=== PATIENT | male | born 1950 | race Caucasian/White ===

== ENCOUNTER 2024-02-02 18:21 | Emergency (ER) | payer MEDICARE, OTHER, SELFPAY ==
[2024-02-02 18:21] VITALS: BMI 41.4
[2024-02-02 18:23] VITALS: BP 126/64
[2024-02-02 18:37] LABS: % Basophils 0.4 % (0-2); % Immature Granulocytes 0.4 % (0-0.5); % Lymphocytes 8.2 % (20.5-51.1); % Monocytes 7.4 % (1.7-9.3); % Neutrophils 83.6 % (42.2-75.2); Absolute Lymphocytes 0.6 10^3/uL (1.2-3.4); Absolute Monocytes 0.6 10^3/uL (0.1-0.6); Absolute Neutrophils 6.4 10^3/uL (1.4-6.5); Hematocrit 39.4 % (39.0-52.0); Hemoglobin 13.4 g/dL (13.0-18.0); Mean Corpuscular Hgb 27.4 pg (27.0-31.0); Mean Corpuscular Volume 80.6 fL (80.0-94.0); Mean Platelet Volume 9.3 fL (7.4-10.4); Nucleated Red Blood Cells % 0 % (-); Platelet Count 189 10^3/uL (130-400); Red Blood Cell Count 4.89 10^6/uL (4.70-6.10); Red Cell Dist. Width 14.7 % (11.5-14.5); White Blood Cell Count 7.6 10^3/uL (4.8-10.8)
[2024-02-02 19:03] LABS: ALT (SGPT) 22 U/L (0-50); AST (SGOT) 24 U/L (17-59); Albumin 4.2 g/dl (3.5-5.0); Alkaline Phosphatase 79 U/L (38-126); Blood Urea Nitrogen 15 mg/dl (9-20); Calcium 8.8 mg/dl (8.4-10.2); Carbon Dioxide 22 mmol/L (22-30); Chloride 99 mmol/L (98-107); Glucose 164 mg/dl (70-99); Potassium 3.6 mmol/L (3.5-5.1); Sodium 132 mmol/L (135-145); Total Bilirubin 0.7 mg/dl (0.2-1.3); Total Protein 7.2 g/dl (6.3-8.2); eGFR > 60.00
[2024-02-02 19:23] LABS: Lipase 199 U/L (23-300)
--- NOTE | 2024-02-02 19:56 | ED.GENMED ---
History of Present Illness
General
Chief Complaint: Abdominal Symptoms
Source: patient
Exam Limitations: none
Time Seen by Provider: 02/02/24 19:42
History of Present Illness
History of Present Illness:
This is a 73 year old male that comes as he had some vomiting yesterday. 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 States that yesterday he was volunteering at [employer] and then he did some running around. States that he might have
had eat exhaustion as he started with vomiting last night. States that he has not had any vomiting today. States that he had slight diarrhea this morning. Denies any fever, chills, chest pain, SOB, abd pain, nausea, headache, dizziness, urinary
burning.
Past History
Past History
ED Past Medical History: Arrthythmia (SVT, A. fib), CHF, HTN, Hypercholesterolemia, Hypothyroidism, Psychiatric (PTSD) and Other (Cardiomyopathy, CPAP, cervical and lumbar DJD, )
ED Past Surgical History: Cardiac (Cardiac ablation x2), Orthopedic (Cervical discectomy, lumbar surgery with rods and pins 2019; left knee arthroscopy, meniscal repair April 16, 2022 right and left hip replacement, Tendon transplant, carpal
tunnel) and Tonsilectomy
Social History
Tobacco: Former smoker
Alcohol: Occasional
Drug: None
Personal:
Living: with family
Employment: Retired
Family History
Family History: Other (Noncontributory)
Review of Systems
Review of Systems
All Other Systems: ROS reviewed and negative except as documented in HPI and ROS
Constitutional: Reports no symptoms; Denies fever or chills
EENT: Reports no symptoms
Respiratory: Denies cough or trouble breathing
Cardiac: Reports no symptoms; Denies chest pain
ABD/GI: Reports nausea, vomiting and diarrhea; Denies abdominal pain
: Reports no symptoms; Denies dysuria, frequency or urgency
Musculoskeletal: Reports no symptoms
Skin: Reports no symptoms
Neurological: Reports no symptoms; Denies dizzy or headache
Psychiatric: Reports no symptoms
Phy Exam
General Physical Exam
General Presentation: no apparent distress (Temp taken at this time and it is 101.1)
General age: appears stated age
General Skin: warm and dry
General Habitus: elderly
General Mental: alert
General Hydration: appears well hydrated
ENT Exam
ENT Exam: TM's normal, pharynx normal and neck supple
Eye Exam
Eye Exam: EOMI
Cardiovascular Exam
Cardiovascular Exam: regular rate/rhythm, no edema, no murmur and normal peripheral pulses
Pulmonary Exam
Pulmonary Exam: lungs clear, no respiratory distress, no rales, chest non tender, no crackles, no rhonchi, no wheezing and no cough
Gastrointestinal Exam
Gastrointestinal Exam: normal bowel sounds, non tender, soft, no organomegaly, no pulsatile mass and non distended
Musculoskeletal Exam
Musculoskeletal Exam: full ROM and no edema
Skin Exam
Skin Exam: normal color, warm/dry, no rash and no petechia
Psychiatric Exam
Psychiatric Exam: normal mood/affect
Course
Orders/Labs/Results
Orders:
Orders
02/02/24 18:31
Complete Blood Count/With Diff Urgent
Comprehensive Metabolic Panel Urgent
Lipase Urgent
02/02/24 19:55
0.9% Sodium Chloride 1000 ml [Nss] 1,000 ml IV BOLUS
Acetaminophen [Tylenol] 1,000 mg PO NOW STA
CR Chest - 2 Views Urgent
Comment:
Reason For Exam: fever
02/02/24 19:58
CT Abd/pelvis W Iv Cont Urgent
Comment:
Reason For Exam: Vomiting, diarrhea, fever, pain
02/02/24 20:07
COVID-19 Antigen Urgent
Source: Nasal Swab
Lactic Acid Urgent
Blood Culture Q30M
AARTI Source: Blood/Venous
Specimen Description:
Blood Culture Q30M
AARTI Source: Blood/Venous
Specimen Description:
Influenza A+B Rapid Molecular Urgent
AARTI Source: Nasal Swab
Specimen Description:
02/02/24 20:15
Urinalysis Reflex To Culture Urgent
Date Specimen was Collected: 02/02/24
Time Specimen was Collected: 20:06
Urine Microscopic Reflex Cult Urgent
Abnormal Lab Results
02/02/24 02/02/24
18:31 20:15
RDW 14.7 H %
(11.5-14.5)
Absolute Lymphs (auto) 0.6 L 10^3/uL
(1.2-3.4)
Neutrophils % 83.6 H %
(42.2-75.2)
Lymphocytes % 8.2 L %
(20.5-51.1)
Sodium 132 L mmol/L
(135-145)
Glucose 164 H mg/dl
(70-99)
Urine Ketones Trace A
(Negative)
Ur Occult Blood Reflex Trace A
(Negative)
Urine Urobilinogen 2+ A
(Neg - 1+)
02/02/24 18:31
02/02/24 18:31
Sodium slightly low. glucose nonfasting. Lipase normal t 199Urine negative for infection. COVID and Influenza Negative.
Vital Signs
Initial and Last Documented VS:
Initial Vital Signs
Temp Pulse Resp BP Pulse Ox
99.9 F 77 20 126/64 96
02/02/24 18:23 02/02/24 18:23 02/02/24 18:23 02/02/24 18:23 02/02/24 18:23
Last Documented Vital Signs
Temp Pulse Resp BP Pulse Ox
99.7 F 77 20 126/64 94
02/02/24 21:43 02/02/24 18:23 02/02/24 18:23 02/02/24 18:23 02/02/24 19:49
MDM/Problems Addressed
Differential Diagnosis Includes:
COVID, Colitis,
MDM/Problems Addressed:
This is a 73 year old male that comes in with c/o vomiting and slight diarrhea. States that this started yesterday.
will get labs, IV fluids, Chest x-ray and CT abd/pelvis.
back into see patient. Explained that his Blood work is normal. He is COVID and Influenza negative. His Urine is negative for infection and the CT of the abd/pelvis is normal. However, there is a little Pneumonia on the right lower lung. Will start
patient on Antibiotics and discharge patient home.
Chronic conditions affecting care:
NA
Acute Exacerbation and/or Progression of Chronic Illness:
NA
*Radiology
Radiology exam reviewed: radiology read reviewed (CT- No significant abnormality identified in the abd or pelvis. Medial right lower lobe Probable Pneumonia. Chest-mild right basilar atelectasis and/or Pneumonia)
*Pulse Oximetry
Patient hypoxic: no
*EKG
Interpreted by ED Provider?: NA
Rate: EKG- N/A
*Roll Tender Interpretation
Rate: Roll Tender- N/A
*Critical Care Note
Total Time (30-74mins, 75-104mins- exclusive of procedures): Not Applicable
ED Attending Note
-
Portions of this chart may have been created with voice recognition software.� Occasional wrong word or��sound alike� substitutions may have occurred due to the inherent limitations of voice recognition software.
Discharge Plan
Departure
Patient Disposition: Home (Routine Discharge)
Date of Disposition: 02/02/24
Time of Disposition: 22:07
Patient with high blood pressure during this ER visit?: No
Condition: Good
Covid-19: Negative COVID-19
Discharge Problem:
Pneumonia involving right lung
Instructions: Pneumonia, Adult (DC)
Prescriptions:
New
doxycycline hyclate 100 mg capsule
100 mg PO BID Qty: 19 0RF
No Action
potassium chloride 8 MEQ capsule, extended release
16 meq PO DAILY
PreserVision AREDS 1 CAP capsule
1 cap PO BID
dabigatran etexilate [Pradaxa] 150 MG capsule
150 mg PO BID
cetirizine 10 MG tablet
10 mg PO DAILY
furosemide 40 MG tablet
40 mg PO DAILY
metoprolol succinate 100 MG tablet extended release 24 hr
50 mg PO DAILY
simvastatin 40 MG tablet
40 mg PO HS
cholecalciferol (vitamin D3) 2,000 UNITS tablet
2,000 unit PO DAILY
flecainide [Tambocor] 150 MG tablet
150 mg PO BID Qty: 60 1RF
Levothyroxine
0.025 mcg PO DAILY
Methocarbamol 500 MG
1 - 3 tab PO BID
pentoxifylline 400 mg Tablet Extended Release
400 mg PO DAILY
escitalopram oxalate 10 mg Tablet
10 mg PO DAILY
melatonin 3 mg Capsule
3 mg PO HS PRN (Reason: sleep)
tramadol 50 mg tablet
50 mg PO TID PRN (Reason: pain) Qty: 10 0RF
cyclobenzaprine 10 mg Tablet
10 mg PO TIDPRN PRN (Reason: muscle spasm) Qty: 20 0RF
tramadol 50 mg tablet
50 mg PO Q8H PRN (Reason: pain) Qty: 10 0RF
Referrals:
Silvino Blum MD [Family Provider] - Follow up in 5-7 days
Activity Restrictions/Additional Instructions:
As discussed, your blood work is normal. You are negative for COVID and Influenza, Your urine is negative for infection. Your CT of the abd/pelvis is negative for any acute process. However there is a right lower lung Pneumonia. You have been given
your first dose of antibiotic here and a prescription has been sent to your Pharmacy. Please increase your water intake to 8-8oz glasses daily. Tylenol 1000mg every 6 hours for fever. Follow up with the family doctor in the next 5-7 days for
recheck. IF YOU HAVE SHORTNESS OF BREATH OR YOU ARE JUST NOT FEELING ANY BETTER PLEASE RETURN TO THE EMERGNECY ROOM.
Interventions
Interventions:
*Risk Screen - Suicide Last Done: 02/02/24 18:23
*General Assessment Last Done: 02/02/24 18:23
*Neglect/Abuse Screening Last Done: 02/02/24 18:23
ED- Fall Risk Assessment Last Done: 02/02/24 19:50
SI-Ziobfl-Pmstjtbufs Assessment Last Done: 02/02/24 19:50
Discharge Date and Time
Print Language: MALIAN
[2024-02-02] MEDS: NSS 1000 IV (20:15)
[2024-02-02] MEDS: TYLENOL 1000 MG PO (20:16)
[2024-02-02 20:23] LABS: Urine Albumin Trace (Neg - Trace); Urine Bilirubin Negative (Negative); Urine Character Clear (Clear); Urine Color Yellow; Urine Glucose Negative (Negative); Urine Ketone Trace (Negative); Urine Leukocyte Negative (Negative); Urine Nitrite Negative (Negative); Urine Occult Blood Trace (Negative); Urine Specific Gravity 1.015 (<1.030); Urine Urobilinogen 2+ (Neg - 1+)
[2024-02-02 20:30] LABS: Lactic Acid 0.9 mmol/L (0.7-2.0)
[2024-02-02 20:32] LABS: Urine Red Blood Cell 0-2 /HPF (0-2); Urine White Cell 0-2 /HPF (0-5)
[2024-02-02 20:33] LABS: COVID-19 Antigen Negative (Negative)
[2024-02-02] MEDS: VIBRAMYCIN 100 MG PO (22:18)
[2024-02-02 22:54] VITALS: BP 131/72
== END 2024-02-02 22:15 | disposition home or self-care (01) ==
LOC: EMR 18:21
PROVIDERS: Clinical Nurse Specialist Family Health; Emergency Medicine; EMERGENCY PHYSICIAN Emergency Medicine; FAMILY PHYSICIAN Internal Medicine
DX: J18.9 Pneumonia, unspecified organism (principal); F03.90 Unspecified dementia, unspecified severity, without behavioral disturbance, psychotic disturbance, mood disturbance, and anxiety; I47.10 Supraventricular tachycardia, unspecified; I48.91 Unspecified atrial fibrillation; I11.0 Hypertensive heart disease with heart failure; I50.9 Heart failure, unspecified; E78.00 Pure hypercholesterolemia, unspecified; E03.9 Hypothyroidism, unspecified; F43.10 Post-traumatic stress disorder, unspecified; I42.9 Cardiomyopathy, unspecified; M47.9 Spondylosis, unspecified; Z11.52 Encounter for screening for COVID-19; Z87.891 Personal history of nicotine dependence
CPT/HCPCS: 99284; 96360; 71046; 74177; 80053; 81003; 81015; 83605; 83690; 85025; 87040; 87502; 87811; Q9967

== ENCOUNTER → 2024-04-11 08:04 | Outpatient (REF) | payer MEDICARE, OTHER, SELFPAY | LOC: HWRCS 08:04 | PROVIDERS: ATTENDING PHYSICIAN Internal Medicine Cardiovascular Disease; FAMILY PHYSICIAN Internal Medicine | DX: R06.02 Shortness of breath (principal) | CPT/HCPCS: 93306 ==

== ENCOUNTER → 2024-04-19 07:56 | Outpatient (REF) | payer MEDICARE, OTHER, SELFPAY | LOC: DHCBC/DCA 07:56 | PROVIDERS: ATTENDING PHYSICIAN Internal Medicine Cardiovascular Disease; FAMILY PHYSICIAN Internal Medicine | DX: R06.02 Shortness of breath (principal) | CPT/HCPCS: 78452; 93017; A9500; J2785 ==

== ENCOUNTER 2024-05-08 23:45 | Emergency (ER) | payer MEDICARE, OTHER, SELFPAY ==
[2024-05-08 23:50] VITALS: BP 164/92
[2024-05-09 01:41] VITALS: BMI 37.7
[2024-05-09 01:42] VITALS: BP 140/87
[2024-05-09 02:00] VITALS: BP 147/76
[2024-05-09 03:00] VITALS: BP 151/91
[2024-05-09] MEDS: DUONEB 3 ML INH (03:04)
[2024-05-09] MEDS: AFRIN NASAL SPRAY 30 SPRAYS NASAL (03:05)
[2024-05-09 04:00] VITALS: BP 157/93
--- NOTE | 2024-05-09 04:23 | ED.GENMED ---
History of Present Illness
General
Chief Complaint: Breathing Problem
Source: patient, previous radiology exam and previous hospital records
Exam Limitations: none
Time Seen by Provider: 05/09/24 02:44
Nursing documentation reviewed up to this point in time: agreed with
History of Present Illness
History of Present Illness:
This is a 73-year-old gentleman who has history of atrial fibrillation, hypertension, hyperlipidemia, obstructive sleep apnea utilizes CPAP. He admits to shortness of breath that has been an ongoing issue for a few months and thus far has undergone
unremarkable echocardiogram April 11, unremarkable stress test April 19. He has an initial appointment with middle school volleyball coach scheduled for May 20.
He presents tonight with complaints of difficulty taking a deep breath, some nasal congestion and concern that he has not been able to use his CPAP tonight. He denies fever no chills, no cough, no chest pain. He denies leg pain or swelling. No
change in weight.
Past History
Past History
ED Past Medical History: Arrthythmia (SVT, A. fib), CHF, HTN, Hypercholesterolemia, Hypothyroidism, Psychiatric (PTSD) and Other (Cardiomyopathy, CPAP, cervical and lumbar DJD, )
ED Past Surgical History: Cardiac (Cardiac ablation ), Orthopedic (Cervical discectomy, lumbar surgery with rods and pins 2019; left knee arthroscopy, meniscal repair April 16, 2022 right and left hip replacement, Tendon transplant, carpal
tunnel) and Tonsilectomy
Social History
Tobacco: Former smoker
Alcohol: Occasional
Drug: None
Personal:
Living: with family
Employment: Retired
Family History
Family History: Other (Noncontributory)
Phy Exam
Physical Exam
Physical Exam:
GENERAL: Alert , in no apparent distress. 73-year-old gentleman appears his stated age, awake and alert, pleasant, appears in no acute distress. Frequently sniffing through his nose in an attempt to take a deep breath he sniffs to inhale through
his nose. No respiratory distress noted. No cough. He does seem mildly anxious.
EYE: anicteric
NECK: Supple, nontender, no meningismus, no significant adenopathy.
ENT: posterior pharynx is clear, oral mucosa is moist. TM clear b/l, nares have moderately boggy turbinates without rhinorrhea.
CARDIAC: Regular rate and rhythm. no murmur.
LUNGS: Clear breath sounds bilaterally, no acute respiratory distress, no wheezes/rales/rhonchi
ABDOMEN: Rotund, soft, nondistended, without focal tenderness, normoactive BS.
NEUROLOGICAL: Alert and oriented x3, no focal neuro deficits. Gait is skaggs and steady.
SKIN: Warm and dry, normal color, skin intact. No rash.
MUSCULOSKELETAL: No C/C/E. peripheral pulses are full and equal b/l. No palpable tenderness.
PSYCH: Normal and appropriate interaction.
Scores
Heart Failure Risk
Heart Failure Risk Score: Not Applicable
Course
Orders/Labs/Results
Orders:
Orders
05/08/24 23:52
ECG [Electrocardiogram (*1)] Urgent
Reason for Study: Shortness of Breath
05/08/24 23:53
EKG- Treatment ONCE
05/09/24 00:00
CR Chest - 2 Views Urgent
Reason For Exam: SOB
05/09/24 02:57
Ipratropium/Albuterol Sulfate [Duoneb] 3 ml INH R NOW STA
Oxymetazoline HCl [Afrin Nasal [place]] See Dose Instructions NASAL NOW STA
Vital Signs
Initial and Last Documented VS:
Initial Vital Signs
Temp Pulse Resp BP Pulse Ox
98.2 F 73 24 164/92 97
05/08/24 23:50 05/08/24 23:50 05/08/24 23:50 05/08/24 23:50 05/08/24 23:50
Last Documented Vital Signs
Temp Pulse Resp BP Pulse Ox
98.2 F 74 24 157/93 97
05/08/24 23:50 05/08/24 23:50 05/08/24 23:50 05/09/24 04:00 05/09/24 04:00
MDM/Problems Addressed
Differential Diagnosis Includes:
Patient presents with intermittent shortness of breath ongoing for several months with thus far unremarkable cardiac evaluation including unremarkable echocardiogram, unremarkable stress echo.
He does have history of obstructive sleep apnea, maintained on CPAP for a number of years.
He is noted to have very mild nasal congestion and repeatedly attempts to inhale through his nose instead of through his mouth. Overall however appears quite comfortable.
Lungs are clear to auscultation.
Nothing in history nor exam to suggest CHF/fluid overload.
EKG is unremarkable showing normal sinus rhythm, no acute ST-T wave changes and unchanged from previous EKG June 2022
Chest x-ray shows poor inspiratory effort, mildly elevated right hemidiaphragm which I suspect is related to poor inspiratory effort.
Will trial a dose of Afrin nasal spray for nasal congestion as well as a DuoNeb nebulizer.
At this point no indication for laboratory studies. Patient has been following with PCP as well as cardiology regarding ongoing intermittent dyspnea.
Chronic conditions affecting care: HTN, Arrhythmia, COPD and Other (Obstructive sleep apnea)
Acute Exacerbation and/or Progression of Chronic Illness: COPD (Patient feeling improved after nebulizer treatment. He may have element of mild exacerbation of COPD versus breathlessness related to nasal congestion associated with allergic
rhinitis.)
*Radiology
Radiology exam reviewed: preliminary read by ED provider (Chest x-ray shows poor inspiratory effort with mild elevation of right hemidiaphragm otherwise unremarkable.)
*Pulse Oximetry
Patient hypoxic: no
*EKG
Interpreted by ED Provider?: Yes
Interpretation: normal
Comparison EKG: no changes
Rate: normal
Rhythm: sinus
[place]: normal axis
Interval: normal interval
QRS Pattern: normal QRS
*Critical Care Note
Total Time (30-74mins, 75-104mins- exclusive of procedures): Not Applicable
Update Note
Update Note:
Patient feeling markedly improved after a dose of nasal Afrin and nebulizer treatment. Resting comfortably.
Lungs remain clear to auscultation. No respiratory distress.
I suspect an element of nasal congestion is cause for his discomfort, shortness of breath.
For nasal congestion recommend he resume his daily Flonase. Discussed hazards of long-term decongestant use and to avoid this going forward.
I have also added an albuterol inhaler which he can use 4 times daily as needed for shortness of breath.
Follow-up with middle school volleyball coach as already scheduled May 20.
ED Attending Note
-
Portions of this chart may have been created with voice recognition software.� Occasional wrong word or��sound alike� substitutions may have occurred due to the inherent limitations of voice recognition software.
Discharge Plan
Departure
Patient Disposition: Home (Routine Discharge)
Date of Disposition: 05/09/24
Time of Disposition: 04:23
Patient with high blood pressure during this ER visit?: No
Condition: Good
Discharge Problem:
acute on chronic shortness of breath, Nasal congestion
Instructions: Shortness of Breath (Dyspnea) (DC)
Prescriptions:
New
albuterol sulfate 90 mcg/actuation aerosol powdr breath activated
2 inh inhalation Q6H PRN (Reason: shortness of breath or wheezing) Qty: 1 0RF
No Action
potassium chloride 8 MEQ capsule, extended release
16 meq PO DAILY
PreserVision AREDS 1 CAP capsule
1 cap PO BID
dabigatran etexilate [Pradaxa] 150 MG capsule
150 mg PO BID
cetirizine 10 MG tablet
10 mg PO DAILY
furosemide 40 MG tablet
40 mg PO DAILY
metoprolol succinate 100 MG tablet extended release 24 hr
50 mg PO DAILY
simvastatin 40 MG tablet
40 mg PO HS
cholecalciferol (vitamin D3) 2,000 UNITS tablet
2,000 unit PO DAILY
flecainide [Tambocor] 150 MG tablet
150 mg PO BID Qty: 60 1RF
Levothyroxine
0.025 mcg PO DAILY
Methocarbamol 500 MG
1 - 3 tab PO BID
pentoxifylline 400 mg Tablet Extended Release
400 mg PO DAILY
escitalopram oxalate 10 mg Tablet
10 mg PO DAILY
melatonin 3 mg Capsule
3 mg PO HS PRN (Reason: sleep)
tramadol 50 mg tablet
50 mg PO TID PRN (Reason: pain) Qty: 10 0RF
cyclobenzaprine 10 mg Tablet
10 mg PO TIDPRN PRN (Reason: muscle spasm) Qty: 20 0RF
tramadol 50 mg tablet
50 mg PO Q8H PRN (Reason: pain) Qty: 10 0RF
doxycycline hyclate 100 mg capsule
100 mg PO BID Qty: 19 0RF
Referrals:
Silvino Blum MD [Family Provider] - Call in 1-3 days for appt
Activity Restrictions/Additional Instructions:
Restart Flonase nasal spray, 2 sprays each nostril once daily.
You have been prescribed an albuterol inhaler to use for as needed shortness of breath.
Follow-up with middle school volleyball coach as already scheduled.
Interventions
Interventions:
*Risk Screen - Suicide Last Done: 05/08/24 23:50
*General Assessment Last Done: 05/09/24 01:41
*Neglect/Abuse Screening Last Done: 05/08/24 23:50
ED- Fall Risk Assessment Last Done: 05/09/24 01:41
*ED COVID-19 Vaccine History Last Done: 05/09/24 01:41
*Nursing Disposition Last Done: 05/09/24 04:28
ED- Cardiac Assessment Last Done: 05/09/24 01:41
ED- Pulmonary Assessment Last Done: 05/09/24 01:41
Discharge Date and Time
Discharge Date/Time: 05/09/24 04:29
Print Language: BENGALI
== END 2024-05-09 04:29 | disposition home or self-care (01) ==
LOC: EMR 23:45
PROVIDERS: EMERGENCY PHYSICIAN Emergency Medicine; FAMILY PHYSICIAN Internal Medicine
DX: R06.02 Shortness of breath (principal); R09.81 Nasal congestion; I48.91 Unspecified atrial fibrillation; I11.0 Hypertensive heart disease with heart failure; I50.9 Heart failure, unspecified; G47.33 Obstructive sleep apnea (adult) (pediatric); E03.9 Hypothyroidism, unspecified; E78.00 Pure hypercholesterolemia, unspecified; Z87.891 Personal history of nicotine dependence
CPT/HCPCS: 99283; 71046; 93005

== ENCOUNTER → 2024-05-30 11:58 | Outpatient (REF) | payer MEDICARE, OTHER, SELFPAY | LOC: HWRAD 11:58 | PROVIDERS: ATTENDING PHYSICIAN Internal Medicine Critical Care Medicine; FAMILY PHYSICIAN Internal Medicine | DX: J98.4 Other disorders of lung (principal) | CPT/HCPCS: 71260; Q9967 ==

== ENCOUNTER → 2024-06-02 13:07 | Outpatient (REF) | payer MEDICARE, OTHER, SELFPAY | LOC: RAD 13:07 | PROVIDERS: ATTENDING PHYSICIAN Internal Medicine Critical Care Medicine; FAMILY PHYSICIAN Internal Medicine | DX: R91.8 Other nonspecific abnormal finding of lung field (principal); J98.6 Disorders of diaphragm | CPT/HCPCS: 71046; 76000 ==

== ENCOUNTER → 2024-12-20 14:13 | Outpatient (REF) | payer MEDICARE, OTHER, SELFPAY ==
[2024-12-20 15:49] LABS: % Basophils 0.7 % (0-2); % Eosinophils 2.2 % (0-6); % Immature Granulocytes 0.3 % (0-0.5); % Lymphocytes 17.8 % (20.5-51.1); % Monocytes 9.9 % (1.7-9.3); % Neutrophils 69.1 % (42.2-75.2); Absolute Eosinophils 0.1 10^3/uL (0-0.7); Absolute Lymphocytes 1.1 10^3/uL (1.2-3.4); Absolute Monocytes 0.6 10^3/uL (0.1-0.6); Absolute Neutrophils 4.1 10^3/uL (1.4-6.5); Hematocrit 46.2 % (39.0-52.0); Hemoglobin 15.1 g/dL (13.0-18.0); Mean Corp Hgb Conc. 32.7 g/dL (33.0-37.0); Mean Corpuscular Hgb 29.5 pg (27.0-31.0); Mean Corpuscular Volume 90.4 fL (80.0-94.0); Mean Platelet Volume 10.2 fL (7.4-10.4); Nucleated Red Blood Cells % 0 % (-); Platelet Count 210 10^3/uL (130-400); Red Blood Cell Count 5.11 10^6/uL (4.70-6.10); Red Cell Dist. Width 12.6 % (11.5-14.5)
[2024-12-20 16:07] LABS: ALT (SGPT) 19 U/L (0-50); AST (SGOT) 22 U/L (17-59); Albumin 4.6 g/dl (3.5-5.0); Alkaline Phosphatase 57 U/L (38-126); Blood Urea Nitrogen 15 mg/dl (9-20); Calcium 9.3 mg/dl (8.4-10.2); Carbon Dioxide 30 mmol/L (22-30); Chloride 106 mmol/L (98-107); Glucose 141 mg/dl (70-99); Potassium 4.8 mmol/L (3.5-5.1); Sodium 143 mmol/L (135-145); Total Bilirubin 0.7 mg/dl (0.2-1.3); Total Protein 7.2 g/dl (6.3-8.2); eGFR > 60.00
[2024-12-20 16:38] LABS: TSH 0.94 uIU/ml (0.47-4.68)
== END ==
LOC: REG 14:13
PROVIDERS: ATTENDING PHYSICIAN Internal Medicine
DX: I10 Essential (primary) hypertension (principal); I48.0 Paroxysmal atrial fibrillation; E03.9 Hypothyroidism, unspecified
CPT/HCPCS: 36415; 80053; 84443; 85025

== ENCOUNTER → 2025-05-15 09:24 | Outpatient (REF) | payer MEDICARE, OTHER, SELFPAY ==
[2025-05-15 11:05] LABS: Hematocrit 45.3 % (39.0-52.0); Hemoglobin 14.5 g/dL (13.0-18.0); Mean Corp Hgb Conc. 32.0 g/dL (33.0-37.0); Mean Corpuscular Volume 87.1 fL (80.0-94.0); Nucleated Red Blood Cells % 0 % (-); Platelet Count 303 10^3/uL (130-400); Red Cell Dist. Width 13.5 % (11.5-14.5)
[2025-05-15 11:46] LABS: Microalbumin, Random Urine 0.9 mg/dl (0.6-1.7)
[2025-05-15 11:47] LABS: Microalb - Urine Creatinine 136.900 mg/dl
[2025-05-15 11:51] LABS: ALT (SGPT) 34 U/L (0-50); AST (SGOT) 29 U/L (17-59); Albumin 4.2 g/dl (3.5-5.0); Alkaline Phosphatase 92 U/L (38-126); Blood Urea Nitrogen 19 mg/dl (9-20); Calcium 9.2 mg/dl (8.4-10.2); Carbon Dioxide 31 mmol/L (22-30); Chloride 104 mmol/L (98-107); Glucose 135 mg/dl (70-99); HDL Cholesterol 29 mg/dl; LDL Cholesterol, Calculated 105 mg/dl; Potassium 5.3 mmol/L (3.5-5.1); Sodium 143 mmol/L (135-145); Total Protein 7.4 g/dl (6.3-8.2); Very Low Density Lipoprotein 32 mg/dl (0-30); eGFR > 60.00
[2025-05-15 12:13] LABS: TSH 1.42 uIU/ml (0.47-4.68)
== END ==
LOC: REG 09:24
PROVIDERS: ATTENDING PHYSICIAN Internal Medicine
DX: I10 Essential (primary) hypertension (principal)
CPT/HCPCS: 36415; 80053; 80061; 82043; 82570; 84439; 84443; 85025

== ENCOUNTER → 2025-05-16 10:55 | Outpatient (REF) | payer MEDICARE, OTHER, SELFPAY ==
[2025-05-16 13:53] LABS: Glycohemoglobin (HgbA1c) 6.2 % (4.0-5.6)
== END ==
LOC: REG 10:55
PROVIDERS: ATTENDING PHYSICIAN Internal Medicine
DX: N40.0 Benign prostatic hyperplasia without lower urinary tract symptoms (principal); R73.01 Impaired fasting glucose
CPT/HCPCS: 36415; 83036; 84153; 84154